=== PATIENT | male | born 1955 | race Hispanic/Latino ===

== ENCOUNTER → 2024-08-01 | Outpatient (CLI) | payer MEDICARE | END | disposition home or self-care (01) | LOC: OIH 08:27 | PROVIDERS: ATTEND Internal Medicine | DX: J42 Unspecified chronic bronchitis (principal) | CPT/HCPCS: 71046 ==

== ENCOUNTER 2025-08-31 10:35 | Emergency (ER) | payer MEDICARE ==
[~2025-08-31] VITALS: Ht 170.2 cm; Wt 76.2 kg
--- NOTE | 2025-08-31 10:47 | ERN ---
ED Note History of Present Illness Stated Complaint: RIGHT FOOT PAIN Chief Complaint: FOOT INJURY/PAIN Time Seen by MD: 10:36 Time Seen by Midlevel: 10:45 Dictation: Mr. Medina is a 70-year-old gentleman with history of type 2 diabetes who presented to the emergency department this morning for evaluation of foot pain. He states that last night at around [id number] he had misstepped with forced inversion/over extension of the right foot and ankle. He states he was carrying a plate of food and his drink and may have lost balance. He has pain with weight bearing and there is significant swelling to lateral aspect or the right ankle and to the dorsum of the right foot. He denies additional injury. PCP: Dr. Prudencio Oconnor Allergies: Coded Allergies: No Known Drug Allergies (Unverified Allergy, Unknown, 08/31/25) Emergency Care CLINICAL QUALITY ASSURANCE SPECIALIST: None Past Medical History Past Medical History: Diabetes-Type II Surgical History: None PSYCH History: no pertinent psych hx Family History: CAD Social History: Negative, Lives with family RN Note Reviewed/Agreed w/PFSH: Yes Review of System Dictation REVIEW OF SYSTEMS: CONSTITUTIONAL: Patient denies fevers, chills, sweats and weight changes. EYES: Patient denies any visual symptoms. EARS, NOSE, AND THROAT: No difficulties with hearing. No symptoms of rhinitis or sore throat. CARDIOVASCULAR: Patient denies chest pains, palpitations, orthopnea and paroxysmal nocturnal dyspnea. RESPIRATORY: No dyspnea on exertion, no wheezing or cough. GI: No nausea, vomiting, diarrhea, constipation, abdominal pain, hematochezia or melena. : No urinary hesitancy or dribbling. No nocturia or urinary frequency. No abnormal urethral discharge. MUSCULOSKELETAL: Reports pain to right foot and ankle. Reports pain with weight-bearing. Reports swelling to ankle and foot. NEUROLOGIC: No chronic headaches, no seizures. Patient denies numbness, tingling or weakness. PSYCHIATRIC: Patient denies problems with mood disturbance. No problems with anxiety. ENDOCRINE: No excessive urination or excessive thirst. DERMATOLOGIC: Patient denies any rashes or skin changes. Initial Vital Sign VS Vital Signs Date Time Temp Pulse Resp B/P (MAP) Pulse Ox O2 Delivery O2 Flow Rate FiO2 08/31/25 10:36 98.2 84 16 128/73 97 Room Air 08/31/25 13:13 0 21 Physical Exam Dictation Vital signs: Reviewed. Afebrile. Constitutional: No acute distress. Non-toxic appearing. Head/Face: Normocephalic, atraumatic. Eyes: Periorbital areas with no swelling, redness, or edema. Lids and lashes are normal. Conjunctival injection is absent. Sclera anicteric. Pupils equal, round, reactive to light. ENT: Pinnas intact and no signs of trauma or erythema. Ear canals clear and no discharge. TMs no erythema. No nasal discharge or bleeding noted. Oropharynx with no exudate, redness, swelling, masses, exudates, or evidence of obstruction. Uvula midline. Mucous membranes moist. Neck: Trachea midline, no masses palpated, and no cervical lymphadenopathy. No swelling. Supple, full range of motion. Chest/Axilla: No tenderness, no crepitus, no paradoxical movement, no retractions. Cardiovascular: Regular rate, regular rhythm, no murmur, no gallops. Symmetric pulses. No peripheral edema. Respiratory: Respirations even and unlabored. Lung sounds clear; no wheezes, rales or rhonchi. Gastrointestinal: Inspection is normal. No distention is appreciated. Bowel sounds are normal. No mass or organomegaly . There is no tenderness. No rebound. No rigidity. No voluntary or involuntary guarding. No Tidwell's sign. Neurological: Normal speech, gross motor function intact, gross sensory function intact. No focal weakness/Paresthesia. Musculoskeletal/Extremities: All extremities have full range of motion; pain with ROM right ankle only. There is tenderness to palpation over the lateral malleolus and surrounding soft tissues; no tenderness over the medial malleolus, base of the 5th metatarsal, navicular, mid tibia, or proximal fibula/knee. No proximal leg pain. Active and passive range of motion is limited secondary to pain, particularly with inversion and weight-bearing. The patient is able to ambulate by weight-bearing on the heel, but reports pain with normal weight- bearing and toe off. Neurovascular exam is intact: Normal color, warmth, movement, and sensation to the toes. Pedal pulses disease DP and PT) are palpable and capillary refill is brisk. No signs of compartment syndrome. Integumentary: Intact. Skin is normal color, warm and dry. Cap refill less than 3 seconds. Results (Laboratory/Radiology) Laboratory/Radiology no acute fracture/dislocation noted right foot ankle as interpreted by Dr. Amanda Welch ED Course ED Course Orders Procedure Category Date Status Time Foot Comp 3+Vws Rt RAD 08/31/25 Resulted 10:51 Ankle Comp 3vws Rt RAD 08/31/25 Resulted 10:51 Apply Ice Pack To: CPOE 08/31/25 Transmitted (Er) 10:51 Elevate Effected Limb CPOE 08/31/25 Transmitted 10:51 Apply Nabil Wrap (Er) CPOE 08/31/25 Transmitted 12:18 Vital Signs Date Time Temp Pulse Resp B/P (MAP) Pulse Ox O2 Delivery O2 Flow Rate FiO2 08/31/25 13:13 98.2 80 14 132/71 97 Room Air* 0 21 08/31/25 10:36 98.2 84 16 128/73 97 Room Air Uneventful ED course. Vital signs stable. Patient declined need for analgesics. Ice pack and Nabil wrap applied. X-rays of the right foot and ankle negative for fracture or dislocation. He continues to have good color, warmth, movement, and sensation to right toes. Capillary refill is brisk. Pedal pulses are palpable and strong. Findings were discussed with patient and significant other. All questions were answered. Medical Decision Making MDM MDM: Differential diagnosis: Sprain ankle, sprain/strain foot, fracture ankle, fracture/ Rationale: Tests considered and ordered secondary to shared decision making include: X-rays Previous outside records reviewed: Old ER visits. Risk of complication and/or morbidity or mortality of patient management: None Medications-Per medication reconciliation Need for hospitalization: Patient does not meet criteria for hospitalization. Need for emergency major/minor surgery: No There are no social concerns with this patient. Prescription drug management: OTC Tylenol or ibuprofen Prescriptions will include symptomatic care Patient's prior external medical records from other ER visits were reviewed by me as indicated. Prior testing and results from previous visits were reviewed. Prior tests were taken into account with medical decision making and resource utilization, independent historian/historians were used to obtain complete medical history. I independently interpreted the test that were performed, results were reviewed by me and considered findings on radiology if ordered. Medical management and examination interpretation discussions were had by me with other qualified healthcare professionals as indicated for the patient's care. DX & DISP Disposition: Discharge Departure Impression: Primary Impression: Sprain and strain of ankle Additional Impressions: Strain of foot, right, Sprain of ankle, right Condition: Stable Additional Instructions: Your foot and ankle x-rays today were negative for fracture. Your symptoms are consistent with a soft tissue sprain/strain; which involves stretching or tearing of ligaments or muscles. Expect pain, swelling, and bruising which may worsen over the next 24-48 hours. Healing time varies, but most sprains improves significantly and 5-10 days and fully recover in 2-6 weeks depending on severity. Care at home (R.I.C.E): Rest; limit weight-bearing on the injured foot. Ice apply ice or cold pack for 15-20 minutes at a time every 2-3 hours for the 1st 48 hours. Use an Nabil wrap or compression bandage to reduce swelling. Wrapped snugly but not so tight that it causes numbness, tingling, or increased pain. Keep the foot elevated above the level of the heart when sitting or lying down to help reduce swelling. You may use [id number] ibuprofen or Tylenol as needed for discomfort. You may weightbear as tolerated but avoid activities that worsen the pain. Walk on your heel if that is more comfortable; temporarily okay. Avoid running, jumping, or sports until fully pain-free. Begin gentle [id number] exercises (example ankle circles) after 48-72 hours as pain allows. Follow up with your primary care physician in the next 7-10 days if swelling does not improve or you have difficulty walking. You may require physical therapy if symptoms do not improve as expected. Return to the ER immediately if you develop severe worsening pain, increased swelling/numbness/tingling, inability to bear weight at all, coolness/discolorations/loss of sensation in the foot/toes, or any new concerns or symptoms. Referrals: PRUDENCIO OCONNOR MD (PCP) Time of Disposition: 12:17 ATTESTATION BY PHYSICIAN I PERFORMED THE SUBSTANTIVE PORTION OF THE VISIT. I HAVE REVIEWED AND PERSONALLY MADE AND APPROVED THE MANAGEMENT PLAN THAT IS DOCUMENTED IN THE NOTE BY MYSELF FOR THE A PP. KIRIT ALCALA Aug 31, 2025 10:47 BONILLA WELCH MD Aug 31, 2025 18:09
--- NOTE | 2025-08-31 10:47 | NUR ---
PT JUST NOW BEING PLACED IN MY ED BED 11
[2025-08-31 13:13] VITALS: BP 132/71; PULSE 80; RESP 14; TEMP 98.2; O2SAT 97
--- NOTE | 2025-08-31 13:34 | HMCIMG ---
EXAM: CR right ankle, 3 View. CLINICAL HISTORY: fall COMPARISON: None provided. FINDINGS: BONES: No acute fracture or aggressive appearing osseous lesion. JOINTS: The joint spaces appear within normal limits. No dislocation. No radiographic evidence of a joint effusion. SOFT TISSUES: The soft tissues are unremarkable. IMPRESSION: No acute osseous abnormality. /[place]
--- NOTE | 2025-08-31 13:35 | HMCIMG ---
EXAM: CR right foot, 4 View. CLINICAL HISTORY: fall COMPARISON: None provided. FINDINGS: Suspected nondisplaced, extra-articular fractures at the head-neck junctions of the 2nd, 3rd, 4th, and 5th metatarsals. Joint spaces remain anatomically aligned. IMPRESSION: 1. Suspected nondisplaced, extra-articular fractures at the head-neck junctions of the 2nd, 3rd, 4th, and 5th metatarsals. /[place]
== END 2025-08-31 13:14 | disposition home or self-care (01) ==
LOC: EDH 10:35
DX: S93.401A Sprain of unspecified ligament of right ankle, initial encounter (principal); S96.911A Strain of unspecified muscle and tendon at ankle and foot level, right foot, initial encounter; E11.9 Type 2 diabetes mellitus without complications; X50.1XXA Overexertion from prolonged static or awkward postures, initial encounter; Y93.01 Activity, walking, marching and hiking; Y92.89 Other specified places as the place of occurrence of the external cause; Y99.8 Other external cause status
CPT/HCPCS: 73610; 73630; 99284